=== PATIENT | male | born 1965 | race African-American/Black ===

== ENCOUNTER 2022-05-18 11:35 | Emergency (ER) | payer MEDICAID ==
[~2022-05-18] VITALS: Ht 182.9 cm; Wt 97.0 kg
[~2022-05-18 11:35] MED LIST: ASPI-1497 PO; DIVAL250 PO; SERT50TA PO
[2022-05-18] MEDS ORDERED: ONDANSETRON HCL 4MG/2ML INJ IV STA (11:59)
[2022-05-18 13:23] LABS: CLARITY URINE CLEAR (CLEAR); COLOR URINE YELLOW (YELLOW); KETONES URINE 1+ (NEGATIVE); LEUKOCYTE ESTERASE URINE NEGATIVE (NEGATIVE); NITRITE URINE NEGATIVE (NEGATIVE); OCCULT BLOOD URINE NEGATIVE (NEGATIVE); PROTEIN URINE 1+ (NEGATIVE); SPECIFIC GRAVITY URINE 1.034 (1.005-1.030); UROBILINOGEN URINE 0.2 E.U./dL (0.2-1.0)
[2022-05-18] MEDS ORDERED: KETOROLAC 30MG/ML VIAL IV ONE (14:15)
[2022-05-18] MEDS ORDERED: SODIUM CHLORIDE 0.9% 1,000 ML IV ONE ×2 (14:15→17:15)
[2022-05-18 14:18] LABS: CHLORIDE 104 mEq/L (98-107)
[2022-05-18] MEDS ORDERED: DOXY100T2 MT ×3 (17:10→17:58)
[2022-05-18] MEDS ORDERED: CEFTRIAXONE SODIUM 1 G/VIAL IM ONE (17:15)
[2022-05-18] MEDS ORDERED: IOHEXOL-300 100 ML BOTTLE ONE (17:35)
[2022-05-18 17:37] LABS: BASOPHILS % 0.4 % (0.0-2.0); EOSINOPHILS % 0.1 % (0.0-5.0); HEMATOCRIT. 48.5 % (42.0-52.0); HEMOGLOBIN. 16.3 g/dL (14.0-18.0); LYMPHOCYTES % 13.1 % (20.0-50.0); MEAN CORPUSCULAR HEMOGLOBIN 29.5 pg (28.0-32.0); MEAN CORPUSCULAR VOLUME 87.7 fL (80.0-94.0); MEAN PLATELET VOLUME 7.6 fl (7.4-10.4); MONOCYTES % 6.1 % (2.0-8.0); NEUTROPHILS % 80.3 % (40.0-76.0); PLATELET 378 x1000/uL (130-400); RED BLOOD CELL COUNT 5.53 mill/uL (4.7-6.1); RED CELL DISTRIBUTION WIDTH 16.4 % (11.6-14.6)
[2022-05-18 17:45] VITALS: BP 142/90
== END 2022-05-18 18:00 | disposition home or self-care (01) ==
LOC: ER 11:35
DX: K62.89 Other specified diseases of anus and rectum (principal); F15.10 Other stimulant abuse, uncomplicated; I10 Essential (primary) hypertension; E78.00 Pure hypercholesterolemia, unspecified
CPT/HCPCS: 36415; 74177; 80053; 81003; 83605; 83690; 84484; 85025; 96361; 96372; 96374; 96375; 99285; J0696; J1885; J2405; J7030; Q9967